=== PATIENT | male | born 1940 | race Caucasian/White ===

== ENCOUNTER → 2021-11-03 12:30 | Outpatient (CLI) | payer MEDICARE, SELFPAY ==
--- NOTE | 2021-11-03 12:35 | DI.ECHO.S_ITS ---
[facility] +---------+ : : [address] : [place] : : : : [id number] : : : : Phone: [phone]---------+ Echocardiogram Report + + :Name: DALLIN MONTENEGRO Study Date: 11/03/2021 Height: 74 in : :[facility] ReadingLocation: Weight: 205 lb : : Gender: Male BSA: 2.2 m2 : :: 1940 Age: 80 yrs BP: 188/97 mmHg: :Reason For Study: Atrial fibrillation : :Ordering Physician: SHANIA, : :AMY Performed By: Wu Dukes : :Referring: AMY GILBERT : + + Interpretation Summary 1) Normal left ventricular thickness, size, wall motion, and systolic function (EF 55-60%). 2) Normal right ventricular size and function. 3) No significant valvular abnormalities. 4) Hypertension present during the study (BP 188/97mmHg). 5) Compared to the Echo done 11/27/2020, LVEF has improved from 45-50% to 55-60% on this study. Procedure: A two-dimensional transthoracic echocardiogram with color flow and Doppler was performed. The study quality was technically adequate. There is no prior echocardiogram noted for this patient. Left Ventricle: The left ventricle is normal in size and wall thickness. Left ventricular systolic function is normal. The ejection fraction is estimated to be 55-60%. There are no focal wall motion abnormalities. Diastolic parameters suggest a relaxation abnormality of the left ventricle, consistent with probable normal filling pressures. Right Ventricle: The right ventricle is normal in size and function. Atria: Both atria are normal in size. The interatrial septum grossly appears intact with no obvious evidence for an atrial septal defect. Mitral Valve: The mitral valve is normal in structure and function. There is trace mitral regurgitation. Aortic Valve: The aortic valve is normal in structure and function. There is no aortic valve stenosis. No aortic regurgitation is present. Tricuspid Valve: The tricuspid valve is normal in structure and function. There is trace tricuspid regurgitation. Pulmonary artery pressures cannot be estimated because of the lack of a measurable TR jet velocity. Pulmonic Valve: The pulmonic valve is normal in structure and function. There is trace pulmonic regurgitation. Great Vessels: The aortic root is normal size. The ascending aorta is mildly enlarged. The IVC is of normal diameter and collapses greater than 50% with a sniff. This suggests a low right atrial pressure of 3 mm Hg. Pericardium/ Pleura There is no pericardial effusion. There is no pleural effusion. MMode/2D Measurements & Calculations LVIDd: 5.0 cm LVOT diam: 2.1 cm LVIDs: 3.4 cm Ao root diam: 3.6 cm FS: 32.0 % asc Aorta Diam: 3.9 cm IVSd: 0.81 cm LVPWd: 0.80 cm LV zacarias. diameter/BSA (cm/m^2): 2.3 LV sys. diameter/BSA (cm/m^2): 1.5 LA A2 area: 20.0 cm2 RA long axis: 4.3 cm LA A4 area: 21.2 cm2 RA area: 13.8 cm2 LA length (vol): 5.8 cm RA vol: 37.1 ml LA vol: 62.2 ml RA : 16.9 ml/m2 LA vol index: 28.3 ml/m2 TAPSE: 2.4 cm Doppler Measurements & Calculations Ao V2 max: 99.9 cm/sec LVOT Max Yemi: 80.2 cm/sec Ao V2 mean: 73.7 cm/sec LV V1 max P.6 mmHg Ao max P.0 mmHg LV V1 VTI: 18.9 cm Ao mean P.3 mmHg FLORINA(I,D): 3.0 cm2 Ao V2 VTI: 21.5 cm FLORINA(V,D): 2.8 cm2 sev ratio: 0.88 FLORINA indexed to BSA (cm^2/m^2): 1.4 MV E max yemi: 104.1 cm/sec SV(LVOT): 65.1 ml MV A max yemi: 59.4 cm/sec MV E/A: 1.8 Med Peak E' Yemi: 9.3 cm/sec E/E' med: 11.2 Lat Peak E' Yemi: 8.9 cm/sec E/E' lat: 11.7 E/e' average: 11.5 MV dec time: 0.26 sec Reading Physician:02:16 PM
== END ==
PROVIDERS: Referring Provider Internal Medicine Cardiovascular Disease; Visit Provider Internal Medicine Cardiovascular Disease
DX: I48.19 Other persistent atrial fibrillation (principal); I77.89 Other specified disorders of arteries and arterioles
CPT/HCPCS: 93306